=== PATIENT | female | born 1990 | race Caucasian/White ===

== ENCOUNTER 2017-08-05 21:32 | Emergency (ER) | payer SELFPAY, OTHER | END 2017-08-06 03:40 | disposition left against medical advice (07) | LOC: FTE 21:32 | DX: Z53.21 Procedure and treatment not carried out due to patient leaving prior to being seen by health care provider (principal) ==

== ENCOUNTER 2018-03-29 03:46 | Emergency (ER) | payer SELFPAY, OTHER ==
[2018-03-29] MEDS ORDERED: DEXAMETHASONE 10 MG/ML 1 ML INJ PO (04:34)
[2018-03-29] MEDS: IBUPROFEN 600 MG TAB PO (04:54)
[2018-03-29] MEDS ORDERED: IPRATROPIUM (NEB) 0.5 MG/2.5 ML AMP INH (05:00)
[2018-03-29] MEDS ORDERED: ALBUTEROL 0.5% (NEB) 2.5 MG/0.5 ML AMP INH ×2 (05:00)
== END 2018-03-29 06:42 | disposition home or self-care (01) ==
LOC: FTE 03:46
DX: M25.531 Pain in right wrist (principal)
CPT/HCPCS: 29125; 73110-RT; 99283-25